=== PATIENT | male | born 1985 | race Caucasian/White ===

== ENCOUNTER 2022-04-24 01:20 | Emergency (ER) | payer OTHER ==
[~2022-04-24] VITALS: Ht 170.2 cm; Wt 68.0 kg
[2022-04-24 01:20] VITALS: BP 102/66
--- NOTE | 2022-04-24 01:23 | NUR ---
sachin lambert to chair b
--- NOTE | 2022-04-24 02:32 | NUR ---
PATIENT BIB THE [facility] POLICE DEPT. PATIENT EXAMINED BY DR. BUCIO. PATIENT MEDICALLY CLEARED AND RELEASED IN CUSTODY IN STABLE CONDITION. ORIGINAL PRE-BOOK FORM GIVEN TO OFFICER KADY, #[id number].
== END 2022-04-24 02:32 ==
LOC: MED 01:20
DX: Z02.89 Encounter for other administrative examinations (principal); V89.2XXA Person injured in unspecified motor-vehicle accident, traffic, initial encounter; Y93.89 Activity, other specified; Y92.488 Other paved roadways as the place of occurrence of the external cause; Y99.8 Other external cause status
CPT/HCPCS: 99283